=== PATIENT | female | born 1995 | race Caucasian/White ===

== ENCOUNTER → 2016-03-22 | Outpatient (CLI) | payer MEDICAID ==
[~2016-03-22] MED LIST: APAP/HYDROCODON1 TA9 PO; CLINDAMYCIN HC300 MG PO; DEPO-PROVER150 MG/M1 IM; IBU800 MG PO; MEDROL 4MG TABLE4 MG PO; NYSTATIN SU60 ML/BOT PO; PHENERGAN25 M3 PO; PROTONIX 40MG T40 MG PO; ZANTAC 300300 M1 PO
--- NOTE | 2016-03-22 13:31 | RADIOLOGY REPORT PS360 ---
US PELVIS-TRANSVAGINAL ONLY HISTORY: PELVIC AND PERINEAL PAIN ORDERING PHYSICIAN: Wilber Rm MD PATIENT AGE: 20 years COMPARISON: None FINDINGS: The uterus is 5 x 3 x 3.7 cm with a combined endometrial thickness of 4 mm. The uterus is retroverted. No uterine mass apparent. The left ovary is 2.8 x 1.8 cm and contains small follicles. Right ovary is 3 x 1.5 cm and contains small follicles. No cul-de-sac fluid apparent. IMPRESSION: Essentially negative pelvic ultrasound small ovarian follicles noted
== END ==
LOC: RAD 09:59
DX: R10.2 Pelvic and perineal pain (principal)

== ENCOUNTER → 2016-10-25 | Outpatient (CLI) | payer MEDICAID ==
[2016-10-25 11:46] LABS: HEMOGLOBIN 14.3 g/dL (12.2-16.2); LYMPH # 2.1 K/mm3 (0.7-4.5); LYMPH % 34.9 % (10-50.0)
[2016-10-25 14:41] LABS: BUN 14 mg/dL (7-18)
[2016-10-25 14:42] LABS: GFR (ESTIMATED) 127 ML/MIN (59-)
[2016-10-26 08:46] LABS: Vitamin D, 25-Hydroxy 35.7 ng/mL (30.0-100.0)
== END ==
LOC: LAB 11:33
PROVIDERS: Nurse Practitioner Family
DX: R53.83 Other fatigue (principal)

== ENCOUNTER → 2016-11-09 | Outpatient (CLI) | payer MEDICAID ==
--- NOTE | 2016-11-10 12:44 | RADIOLOGY REPORT PS360 ---
FLUOROSCOPY CHARGE .25 HOUR COMPARISON: None HISTORY: Fluoroscopy for removal of Implanon device TECHNIQUE: Fluoroscopy FINDINGS: A single fluoroscopic film shows the lower portion of the arm, the side is not labeled as to right or left. There is a linear opacity in the subcutaneous tissues likely the Implanon device presumably for localization prior to removal. No additional films were obtained following removal. IMPRESSION: Implanon device removal as noted
== END ==
LOC: RAD 09:20
DX: Z30.8 Encounter for other contraceptive management (principal)

== ENCOUNTER → 2016-11-15 | Outpatient (CLI) | payer MEDICAID ==
[2016-11-19 03:39] LABS: Neisseria gonorrhoeae, NAA Negative (Negative)
== END ==
LOC: LAB 18:57
PROVIDERS: Nurse Practitioner Obstetrics & Gynecology
DX: Z72.51 High risk heterosexual behavior (principal)

== ENCOUNTER → 2016-11-24 | Outpatient (CLI) | payer MEDICAID ==
--- NOTE | 2016-11-24 15:00 | RADIOLOGY REPORT PS360 ---
FLUOROSCOPY CHARGE .25 HOUR CLINICAL INDICATION: REMOVAL CONTROL IMPLANT ORDERING PHYSICIAN: Ben Pérez MD PATIENT AGE: 21 years COMPARISON: None FINDINGS: Fluoroscopy was utilized to locate the subcutaneous implanted device. Multiple images are submitted along the fluoroscopy. Fluoroscopy time is 11 seconds. IMPRESSION: Fluoroscopy was utilized to locate the subcutaneous implanted device. Multiple images are submitted along the fluoroscopy
== END ==
LOC: RAD 10:41
DX: Z30.49 Encounter for surveillance of other contraceptives (principal)

== ENCOUNTER → 2016-12-28 | Outpatient (CLI) | payer MEDICAID ==
[~2016-12-28] MED LIST changes: +PRENATAL1 TA1 PO
[2016-12-28 11:34] LABS: HEMOGLOBIN 13.4 g/dL (12.2-16.2); LYMPH # 1.9 K/mm3 (0.7-4.5); LYMPH % 27.7 % (10-50.0)
[2016-12-28 12:49] LABS: ABO BLOOD TYPE A; RH BLOOD TYPE POSITIVE
[2016-12-29 08:39] LABS: HBsAg Screen Negative (Negative); HIV Screen 4th Generation wRfx Non Reactive (Non Reactive); Hep C Virus Ab <0.1 (0.0-0.9); Rapid Plasma Reagin, Quant Non Reactive (NonRea<1:1); Rubella Antibodies, IgG <0.90 index (Immune >0.99)
== END ==
LOC: LAB 10:36
PROVIDERS: Nurse Practitioner Obstetrics & Gynecology
DX: Z34.00 Encounter for supervision of normal first pregnancy, unspecified trimester (principal)
CPT/HCPCS: G0432

== ENCOUNTER 2016-12-30 16:02 | Emergency (ER) | payer MEDICAID ==
[~2016-12-30] VITALS: Ht 154.9 cm; Wt 68.9 kg
[~2016-12-30 16:02] MED LIST changes: -PRENATAL1 TA1 PO
[2016-12-30] MEDS ORDERED: PRENATAL1 TA1 PO (16:21)
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
--- OUTSIDE RECORDS SUMMARY | 2016-12-30 16:26 | External Medical Summary Rpt | CCD ---
Author Author , GUY Organization GUY Address Unknown Phone [email or web address] Immunization Name Date Rout CVX Reac Dose Comm Prov Is Faci e tion ent ider Refu lity Give sed n Tdap 02-1 115 999 Hist H149 No H149 , 9-20 oric Adso 09 al rbed Info rmat ion - Sour ce Unsp ecif ied Zia 08-0 10 999 Hist H149 No H149 o-IP 1-20 oric V 01 al Info rmat ion - Sour ce Unsp ecif ied PCV7 08-0 100 999 Hist H149 No H149 1-20 oric 01 al Info rmat ion - Sour ce Unsp ecif ied MMR 08-0 3 999 Hist H149 No H149 1-20 oric 01 al Info rmat ion - Sour ce Unsp ecif ied DTaP 08-0 107 999 Hist H149 No H149 , UF 1-20 oric 01 al Info rmat ion - Sour ce Unsp ecif ied
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
--- OUTSIDE RECORDS SUMMARY | 2016-12-30 16:26 | External Medical Summary Rpt | CCD ---
Author Author , GUY Organization GUY Address Unknown Phone [email or web address] Immunization Name Date Rout CVX Reac Dose [...]
--- NOTE | 2016-12-30 16:35 | Emergency Room Report ---
History of Present Illness Time Seen by MD Khalil Presenting Problem in Triage Pt arrived:Walked Presenting Problem:ABDOMINAL CRAMING WITH SMALL AMOUNT OF BLOOD IN URNE PER PT. 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 N Clinical Suspician of Infection? N Mental Status: 1 - Regular (Normal Baseline) Sepsis Risk:Low Sepsis Risk Have you (or family members/close friends) recently traveled outside the [place]? N If Yes, where/when: Have you had exposure to infectious disease within the past month? N TB? Other? Specify: She states she's the last period was September early part of September she doesn't know exactly when this is her first , she complains of some suprapubic area crampy pain mild in severity no radiation she states she's having some vaginal bleeding over the past couple days, to the triage she stated the blood was any urine to me she stated it was vaginal bleeding. No radiation ALLERGIES Coded Allergies: amoxicillin (04/11/15) Home Medications Reported Medications VIT#96/FERROUS FUM/FA ( Tablet) 1 TAB PO DAILY #30 History Medical History General CAD? No Angina: No WV: No Hypertension? No Hyperlipidemia? No CHF? No DVT? No PE? No COPD? No Asthma? No Anemia? No GERD? No Gastric ulcers? No GI Bleed? No Hernia? No Thyroid Problems? No Hypothyroidism? No CVA? No Seizures? No Diabetes? No Insulin Dependent: No Insulin Pump: No Home FSBS? No Renal Insuffiency? No End Stage Renal Disease? No UTI? No Stones? No BPH? No GB Disease: No Nephritic Syndrome? No Asplenia? No Hepatitis? No Sickle Cell Disease? No Arthritis? No Migraines? No Cataracts? No Glaucoma? No MRSA? No HIV? No TB? No Anxiety? No Depression? No Cancer? No More? 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 LMP 3 Months Ago Est.Due Date [address] BOLANOS Family History Family Hx Diabetes No CAD Yes Hypertension Yes Hyperlipidemia No Cancer No TB No Social History Smoking Hx Smoker: Former Smoker Tobacco: No Alcohol Alcohol: No Review of Systems All Other Systems Reviewed and Negative Comment Review of systems otherwise negative except for than history of present illness Physical Exam Vital Signs Vital Signs Date Time Temp Pulse Resp B/P Pulse O2 O2 Flow FiO2 Ox Delivery Rate 12/30 1905 98.8 86 16 139/83 100 12/30 1732 98.8 95 16 131/73 95 12/30 1611 98.5 109 16 128/86 100 General Appearance: Nontoxic Head: Normocephalic, without obvious abnormality, atraumatic. Eyes: conjunctiva/corneas clear ENT: Mucous membranes moist. Neck: No jugular venous distention. Cardiac: regular rate and rhythm Lungs: Clear to auscultation bilaterally Abdomen: suprapubic tenderness , Nondistended, positive bowel sounds, no rebound : No CVA tenderness Extremities: no edema Musculoskeletal: No chest wall tenderness Skin: No rashes or lesions to exposed skin. Neurologic: Alert. No gross focal deficits Psychiatric: Normal affect (Mauricio JUDGE, [place]) General Appearance normal appearance Respiratory Status No: respiratory distress. Cardiovascular normal exam Neurologic alert Medical Decision Making LABS/Meds/Orders Pt receiving controlled substance in ED? No Comment 517 US states sac noted, but nothing else, no signs of ectopic, too early to tell much. bhcg is pending. 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 pelvic exam is no cervical motion tenderness no adnexal tenderness os is closed I did not note any blood there was no blood on the Q-tip GC chlamydial and wet prep were taken. Results/Orders Laboratory Tests 12/30/16 1725: Sodium 145, Potassium 4.1, Chloride 108 H, Carbon Dioxide 29, BUN 8, Creatinine 0.6, Estimated Creat Clear 163, Estimated GFR (MDRD) 127, Glucose 94, Calcium 9.0, Total Bilirubin 0.1 L, AST 28, ALT 39, Alkaline Phosphatase 99, Total Protein 7.0, Albumin 3.6, Globulin 3.4 H, Albumin/Globulin Ratio 1.1, Beta HCG, Quant 5447.8, WBC 8.8, RBC 4.29, Hgb 12.7, Hct 38.1, MCV 88.8, RDW 12.6, Plt Count 293, MPV 7.0 L, Gran % 64.0, Gran # 5.7, Lymphocytes % 28.4, Monocytes % 5.9, Eosinophils % 1.2, Basophils % 0.5, Lymphocytes # 2.5, Monocytes # 0.5, Eosinophils # 0.1, Basophils # 0.0, PUBS MCHC 33.3, MCH 29.6 12/30/16 1610: C.trachomatis DNA (ALEJO) Pending, N.gonorrhoeae RNA Pending, Urine Color YELLOW, Urine Appearance CLEAR, Urine pH 7.0, Ur Specific Eleanor 1.015, Urine Protein NEGATIVE, Urine Ketones NEGATIVE, Urine Blood TRACE-LYSED, Urine Nitrate NEGATIVE, Urine Bilirubin NEGATIVE, Urine Urobilinogen 0.2, Ur Leukocyte Esterase NEGATIVE, Urine RBC OCC, Urine WBC NONE, Ur Squamous Epith Cells OCC, Urine Bacteria TRACE, Urine Glucose NEGATIVE Orders Procedure Date/time Status US TRANSVAGINAL PREG 12/30 1636 Active WET PREP 12/30 1636 Complete CHLAMYDIA/GC 12/30 1636 Active CBC WITH AUTO DIFF 12/30 1636 Complete CHEM 12 PROFILE 12/30 1636 Complete BETA-HCG, QUANT 12/30 1636 Complete URINE 12/30 1625 Complete URINALYSIS/COMPLETE 12/30 1624 Complete Departure Departure Time of Disposition 1928 Disposition DC Home or Self Care(routine) Clinical Impression Primary Impression: Threatened miscarriage in early Condition STABLE Referrals DELISA FRANCO (Family) Patient Instructions DI for Threatened Additional Instructions have a repeat BHCG drawn in 48 hours. followup with OB for recheck, Dr. Bolanos. Discharge Counseling Counseled pt/family regarding diagnosis, test results, medications/RX, home care, follow up needs ED Critical Care Critical Care No at 1932
[2016-12-30 16:42] LABS: URINE BILIRUBIN - DIPSTICK NEGATIVE (NEG); URINE BLOOD TRACE-LYSED (NEG)
[2016-12-30 16:52] LABS: URINE SQUAMOUS CELLS OCC #/hpf (0-5)
[2016-12-30 17:40] LABS: HEMOGLOBIN 12.7 g/dL (12.2-16.2); LYMPH # 2.5 K/mm3 (0.7-4.5); LYMPH % 28.4 % (10-50.0)
[2016-12-30 19:44] VITALS: BP 130/86
--- NOTE | 2016-12-31 09:02 | RADIOLOGY REPORT PS360 ---
US TRANSVAGINAL PREG COMPARISON: Ultrasound the pelvis 12/08/2016 HISTORY: Positive urine test, spotting this a.m. TECHNIQUE: Transvaginal ultrasound Findings: there has been interval change in appearance of the uterus from the previous study on 12/08/2016. There is a small oval gestational sac seen within the uterus no more than 11.5 cm in size. There are no echoes within the sac. The endometrium is slightly echogenic. Both ovaries are imaged and both appear normal, there is no cul-de-sac fluid. Impression: Possible very early intrauterine gestation too early to assess viability and recommend patient follow-up ultrasound in 7-10 days or continuing evaluation depending on the patient's subsequent clinical course
[2017-01-02 16:40] LABS: Neisseria gonorrhoeae, NAA Negative (Negative)
== END 2016-12-30 19:45 | disposition home or self-care (01) ==
LOC: ER 16:02
PROVIDERS: Emergency Medicine
DX: O20.0 Threatened abortion (principal); Z3A.20 20 weeks gestation of pregnancy

== ENCOUNTER → 2017-01-01 | Outpatient (CLI) | payer MEDICAID ==
[~2017-01-01] MED LIST changes: +PRENATAL1 TA1 PO
== END ==
LOC: LAB 10:51
DX: R10.84 Generalized abdominal pain (principal); Z34.00 Encounter for supervision of normal first pregnancy, unspecified trimester